=== PATIENT | female | born 1970 | race Caucasian/White ===

== ENCOUNTER 2019-10-28 11:28 | Emergency (ER) | payer BC ==
[~2019-10-28] VITALS: Ht 162.6 cm; Wt 72.6 kg
[2019-10-28] MEDS ORDERED: KETOROLAC TROMETH 15 mg/ml 1ML VL IV ONE (11:45)
[2019-10-28 16:09] VITALS: BP 141/78
== END 2019-10-28 16:11 | disposition home or self-care (01) ==
LOC: EDBD 11:28 → ER 11:28
DX: S96.912A Strain of unspecified muscle and tendon at ankle and foot level, left foot, initial encounter (principal); S50.02XA Contusion of left elbow, initial encounter; S80.02XA Contusion of left knee, initial encounter; E11.9 Type 2 diabetes mellitus without complications; J45.909 Unspecified asthma, uncomplicated; Z90.49 Acquired absence of other specified parts of digestive tract; W19.XXXA Unspecified fall, initial encounter; Y93.89 Activity, other specified; Y99.8 Other external cause status; Y92.89 Other specified places as the place of occurrence of the external cause
CPT/HCPCS: 73070; 73502; 73560; 73600; 96374; 99283; J1885